=== PATIENT | male | born 1975 | race Two or more races ===

== ENCOUNTER 2022-11-23 19:46 | Outpatient (CLI) | payer OTHER | END 2022-11-23 23:00 | disposition home or self-care (01) | LOC: LAB 19:46 | PROVIDERS: ATTEND Urology | DX: R97.20 Elevated prostate specific antigen [PSA] (principal) ==

== ENCOUNTER 2022-12-02 07:22 | Outpatient (CLI) | payer OTHER | END 2022-12-02 07:34 | disposition home or self-care (01) | LOC: SONOGRAMA 07:22 | PROVIDERS: ATTEND Urology | DX: C61 Malignant neoplasm of prostate (principal); N41.1 Chronic prostatitis; D29.1 Benign neoplasm of prostate; R97.20 Elevated prostate specific antigen [PSA] ==